=== PATIENT | male | born 1970 | race Caucasian/White ===

== ENCOUNTER 2023-03-04 12:48 | Emergency (ER) | payer BC ==
[2023-03-04] MEDS ORDERED: ceFAZolin 1 GM Vial IM ONE (13:09)
[2023-03-04] MEDS ORDERED: Sodium Chloride 0.9% 500 ML IV ONE (13:15)
[2023-03-04] MEDS ORDERED: Bacitracin Oint 1 GM U/D Packet TOP ONE (13:15)
[2023-03-04] MEDS ORDERED: Sodium Chloride 0.9% 10 ML Syringe FLUSH PRN (13:15)
[2023-03-04 13:25] LABS: BASOPHILS ABSOLUTE AUTO 0.06 K/uL (0.00-0.10); BASOPHILS PERCENT AUTO 0.5 % (0.1-1.3); EOSINOPHILS ABSOLUTE AUTO 0.03 K/uL (0.00-0.40); EOSINOPHILS PERCENT AUTO 0.3 % (0.0-5.4); HEMATOCRIT 41.1 % (38.4-49.7); HEMOGLOBIN 15.5 g/dL (12.9-16.9); IMMATURE GRAN ABSOLUTE AUTO 0.06 K/uL (0.00-0.23); IMMATURE GRAN PERCENT AUTO 0.5 % (0.0-0.7); LYMPHOCYTES ABSOLUTE AUTO 1.33 K/uL (0.8-3.3); LYMPHOCYTES PERCENT AUTO 11.1 % (11.4-47.7); MEAN CORPUSCULAR HEMOGLOBIN 31.8 pg (31.6-35.5); MEAN CORPUSCULAR HGB CONC 37.7 g/dL (31.6-35.5); MEAN CORPUSCULAR VOLUME 84.4 fL (81.4-99.0); MONOCYTES ABSOLUTE AUTO 0.76 K/uL (0.20-0.90); MONOCYTES PERCENT AUTO 6.4 % (3.3-12.6); NEUTROPHILS ABSOLUTE AUTO 9.71 K/uL (1.0-7.6); NEUTROPHILS PERCENT AUTO 81.2 % (40.0-78.1); PLATELET COUNT,PLT 276 K/uL (130-375); RED BLOOD CELL COUNT 4.87 M/uL (4.14-5.76)
[2023-03-04] MEDS ORDERED: ceFAZolin 1 GM in Premix Bag 1 BAG IV ONE (13:30)
[2023-03-04] MEDS ORDERED: oxyCODONE 5 MG Tab PO ONE (13:52)
[2023-03-04] MEDS ORDERED: Bacitracin Oint 1 GM U/D Packet ONE (14:24)
== END 2023-03-04 14:49 | disposition home or self-care (01) ==
LOC: JP.ED 12:48
DX: S81.812A Laceration without foreign body, left lower leg, initial encounter (principal); S90.852A Superficial foreign body, left foot, initial encounter; W20.8XXA Other cause of strike by thrown, projected or falling object, initial encounter
CPT/HCPCS: 12002; 36415; 85025; 96365; 99283; J0690; J7040